=== PATIENT | female | born 1955 | race Caucasian/White ===

== ENCOUNTER 2017-06-24 09:29 | Emergency (ER) | payer BC ==
[~2017-06-24] VITALS: Ht 160 cm; Wt 54.5 kg
[~2017-06-24 09:29] MED LIST: ESTR1TAB13 PO
[2017-06-24 09:46] VITALS: BP 135/82
--- NOTE | 2017-06-24 09:54 | NUR ---
Pt taken to bed 1.
--- NOTE | 2017-06-24 10:05 | NUR ---
PATIENT PRESENTS TO ED WITH C/O INTERMITTENT DIZZINESS/NAUSEA X 1 MONTH WITH FEELING FATIGUE AND LETHARGIC;DENIES NUMBNESS/TINGLING SENSATION ON EXTREMITIES;DENIES BLURRY OF VISSION;DENIES V/D;HX OF UTI;RX OF MICROBID; SKIN IS PINK/WARM/DRY; AAOX4 WITH EVEN AND STEADY GAIT; LUNGS CLEAR BL; HR EVEN AND REGULAR; PT DENIES ANY FEVER, CP, SOB, OR COUGH AT THIS TIME; PATIENT STATES PAIN OF 6/10 AT THIS TIME; PATIENT POSITIONED FOR COMFORT; HOB ELEVATED; BEDRAILS UP X2; BED DOWN. ER MD MADE AWARE OF PT STATUS.
--- NOTE | 2017-06-24 11:53 | NUR ---
PT RESTING ON BED;STATES" I DON'T FEEL THAT DIZZY ANYMORE CAN I GO HOME NOW?"WHEN WILL THE DR COME HERE?EXPLAINED TO PT THAT DR IS BUSY RT NOW BUT HE'S DOING HIS BEST TO ATTNED TO HER;CONVINCED PT TO WAIT FOR A LITTLE MORE AND PT AGREED TO IT;WILL CONTINUE TO MONITOR PT.
--- NOTE | 2017-06-24 12:08 | NUR ---
DR SIU AT BEDSIDE.
[2017-06-24 12:50] LABS: APPEARANCE,URINE CLEAR (CLEAR); BILIRUBIN,URINE NEGATIVE (NEGATIVE); BLOOD, URINE NEGATIVE (NEGATIVE); COLOR,URINE YELLOW (YELLOW); LEUKOCYTE ESTERASE ,URINE NEGATIVE (NEGATIVE); NITRITE, URINE NEGATIVE (NEGATIVE); UGLUCOSE NEGATIVE (NEGATIVE)
[2017-06-24 13:04] LABS: ALBUMIN 4.3 g/dL (3.4-5.0); ANION GAP 15.6 (8-16); CARBON DIOXIDE 27.3 mmol/L (21-32); CREATININE 0.9 mg/dL (0.6-1.3); HEMATOCRIT 42.8 % (36-48); HEMOGLOBIN 14.2 g/dL (12.0-16.0); MEAN CORPUSCULAR HEMOGLOBIN 27 pg (27-31); MEAN CORPUSCULAR HGB CONC 33 g/dL (33-37); MEAN CORPUSCULAR VOLUME 83 fL (80-94); PLATELET COUNT (AUTO) 170 K/uL (140-450); POTASSIUM 4.9 mmol/L (3.5-5.1); RED BLOOD CELL COUNT(AUTO) 5.18 MIL/uL (4.20-5.40); RED CELL DISTRIBUTION WIDTH 12.1 % (11.6-13.7); TOTAL BILIRUBIN 0.5 mg/dL (0.0-1.0); WHITE BLOOD COUNT (AUTO) 6.2 K/uL (4.8-10.8)
[2017-06-24 13:09] LABS: RBC,URINE NONE SEEN /HPF (0-5); WBC,URINE 0-5 (RARE) /HPF (0-5)
[2017-06-24 13:19] LABS: LYMPHOCYTES % (MANUAL) 49 % (20-46)
[2017-06-24 13:20] LABS: EOSINOPHILS % (MANUAL) 2 % (0-4); MONOCYTES % (MANUAL) 9 % (5-12)
[2017-06-24 14:16] VITALS: BP 138/75
== END 2017-06-24 14:16 | disposition home or self-care (01) ==
LOC: MED 09:29
DX: R07.89 Other chest pain (principal); R42 Dizziness and giddiness; Z90.710 Acquired absence of both cervix and uterus; Z79.899 Other long term (current) drug therapy
CPT/HCPCS: 36415; 71045; 80053; 81001; 83690; 83880; 84484; 85025; 93005; 99285

== ENCOUNTER 2019-01-29 10:59 | Emergency (ER) | payer OTHER, BC ==
[~2019-01-29] VITALS: Ht 162.6 cm; Wt 56.7 kg
[2019-01-29 11:07] VITALS: BP 133/87
--- NOTE | 2019-01-29 11:23 | NUR ---
Pt taken to bed 7.
--- NOTE | 2019-01-29 11:48 | NUR ---
63F BIB FRIEND C/O DIZZINESS, FATIGUE, B/L LBP X 1 WEEK. PAIN IS SHARP, 7/10, CONSTANT. STATES FREQUENCY, DENIES DYSURIA AND URGENCY. PT AAOX4, COOPERATIVRE. TRIED TAKING CRANBERRY JUICE AT HOME. NO VISUAL CHANGES. DENIES N/V/D, FEVER. HX-NONE RX- NONE ALL-[facility]
--- NOTE | 2019-01-29 12:27 | NUR ---
Dr. Chavez evaluating patient at bedside.
--- NOTE | 2019-01-29 12:59 | NUR ---
PT SITTING IN BED, FAMILY AT BEDSIDE. PT REPORTS PAIN AT 7/10, PT STATES SHE DOES NOT WANT ANY SHOTS AND WOULD PREFER ORAL MEDICINE. PT REPORTS SHE IS STILL DIZZY, PT AAOX4, MEMORY INTACT, SPEECH CLEAR. VSS.
[2019-01-29] MEDS ORDERED: ACETAMINOPHEN 325 MG TAB PO ONE (13:15)
--- NOTE | 2019-01-29 13:33 | NUR ---
PT GOING TO X-RAY AT THIS TIME
--- NOTE | 2019-01-29 14:04 | NUR ---
wilder labs on pt using butterfly needle, pt tolerated well, student nurses are taking samples to lab.
[2019-01-29 14:21] LABS: BASOPHILS % (AUTO) 0.4 % (0.0-2.0); EOSINOPHILS # (AUTO) 0.1 K/uL (0-0.4); EOSINOPHILS % (AUTO) 1.3 % (0.0-4.0); HEMATOCRIT 43.8 % (36-48); HEMOGLOBIN 14.7 g/dL (12.0-16.0); LYMPHOCYTES # (AUTO) 2.6 K/uL (2.5-16.5); LYMPHOCYTES % (AUTO) 32.3 % (20.5-51.1); MEAN CORPUSCULAR HEMOGLOBIN 28 pg (27-31); MEAN CORPUSCULAR HGB CONC 34 g/dL (33-37); MEAN CORPUSCULAR VOLUME 82.6 fL (80-94); MONOCYTES # (AUTO) 0.5 K/uL (0.8-1.0); MONOCYTES % (AUTO) 6.8 % (1.7-9.3); NEUTROPHILS # (AUTO) 4.8 K/uL (1.8-7.7); NEUTROPHILS % (AUTO) 59.2 % (42.2-75.2); PLATELET COUNT (AUTO) 191 K/uL (140-450); WHITE BLOOD COUNT (AUTO) 8.1 K/uL (4.8-10.8)
[2019-01-29 14:22] LABS: APPEARANCE,URINE CLEAR (CLEAR); BILIRUBIN,URINE NEGATIVE (NEGATIVE); BLOOD, URINE NEGATIVE (NEGATIVE); COLOR,URINE YELLOW (YELLOW); LEUKOCYTE ESTERASE ,URINE NEGATIVE (NEGATIVE); NITRITE, URINE NEGATIVE (NEGATIVE); UGLUCOSE NEGATIVE (NEGATIVE)
[2019-01-29 15:27] LABS: ANION GAP 14.4 (8-16); CREATININE 0.9 mg/dL (0.6-1.3); POTASSIUM 4.4 mmol/L (3.5-5.1)
[2019-01-29 15:52] VITALS: BP 127/79
--- NOTE | 2019-01-29 15:52 | NUR ---
Patient discharged with v/s stable. Written and verbal after care instructions given and explained. Patient verbalized understanding. Ambulatory with steady gait. All questions addressed prior to discharge. Advised to follow up with PMD.
== END 2019-01-29 15:52 | disposition home or self-care (01) ==
LOC: MED 10:59
DX: M54.5 Low back pain (principal); R35.0 Frequency of micturition; R42 Dizziness and giddiness; Z79.899 Other long term (current) drug therapy
CPT/HCPCS: 36415; 72100; 80048; 81003; 82948; 85025; 99284

== ENCOUNTER 2021-12-23 09:05 | Emergency (ER) | payer OTHER, BC ==
[~2021-12-23] VITALS: Ht 152.4 cm; Wt 52.6 kg
[2021-12-23 09:13] VITALS: BP 129/86
--- NOTE | 2021-12-23 09:20 | NUR ---
PT AMBULATED TO ER BED 4
--- NOTE | 2021-12-23 09:46 | NUR ---
md gaming in pt room for assessment at this time
[2021-12-23] MEDS ORDERED: HYDROcodone/APAP 5/325 MG 1 TAB TAB PO ONE (09:50)
[2021-12-23] MEDS ORDERED: HYDROcodone/APAP 5/325 MG 1 TAB TAB ONE (09:50)
[2021-12-23] MEDS ORDERED: IBUP-2213 PO (09:51)
[2021-12-23] MEDS ORDERED: ACET-8386 PO (09:51)
--- NOTE | 2021-12-23 09:52 | NUR ---
66 y/o female, c/o low back pain for 2 motnhs, denie sinjury or trauma. pt states she has bene taking tramadol and acupuncture, but has been having worsening pain. denies nausea, vomiting, diarrhea. skin is pink/warm/dry. a&o x4 with even and steady gait. lungs clear bl, heart rate even and regular. pt denies dysuria, hematuria, urinary frequency or retention, or anyone sick in the household with the same symptoms. pt denies any fever, cp, sob, or cough at this time. pt states pain is 10/10 at this time. vss. patient positioned for comfort. hob elevated. bed down. ermd made aware of pt. pmh: denies nka
[2021-12-23 10:07] VITALS: BP 129/86
--- NOTE | 2021-12-23 10:08 | NUR ---
Patient discharged with v/s stable. Written and verbal after care instructions given and explained. Patient alert, oriented and verbalized understanding of instructions. Ambulatory with steady gait. All questions addressed prior to discharge. ID band removed. Patient advised to follow up with PMD. Rx of norco, ibuprofen (sent) given. Patient educated on indication of medication including possible reaction and side effects. Opportunity to ask questions provided and answered.
== END 2021-12-23 10:08 | disposition home or self-care (01) ==
LOC: MED 09:05
DX: M54.50 Low back pain, unspecified (principal); Z79.899 Other long term (current) drug therapy
CPT/HCPCS: 81002; 99283

== ENCOUNTER 2022-10-15 13:02 | Emergency (ER) | payer OTHER, BC ==
[~2022-10-15] VITALS: Ht 157.5 cm; Wt 54.4 kg
[~2022-10-15 13:02] MED LIST changes: +ACET-8905 PO; +IBUP-2213 PO
[2022-10-15 13:07] VITALS: BP 143/70
--- NOTE | 2022-10-15 13:24 | NUR ---
67 yo/f presents to ED w c/o low sodium test was done thursday and results came in today. pt denies any chest pain, sob, dizziness or any symptoms. pmh: denies allergies: denies
[2022-10-15 13:43] LABS: BASOPHILS % (AUTO) 0.5 % (0.0-2.0); EOSINOPHILS # (AUTO) 0.1 K/uL (0-0.4); EOSINOPHILS % (AUTO) 1.7 % (0.0-4.0); HEMATOCRIT 38.1 % (36-48); HEMOGLOBIN 12.9 g/dL (12.0-16.0); MEAN CORPUSCULAR HEMOGLOBIN 28 pg (27-31); MEAN CORPUSCULAR HGB CONC 34 g/dL (33-37); MEAN CORPUSCULAR VOLUME 82.8 fL (80-94); MONOCYTES # (AUTO) 0.8 K/uL (0.8-1.0); MONOCYTES % (AUTO) 9.8 % (1.7-9.3); NEUTROPHILS # (AUTO) 4.4 K/uL (1.8-7.7); PLATELET COUNT (AUTO) 215 K/uL (140-450); RED CELL DISTRIBUTION WIDTH 13.6 % (11.6-13.7); WHITE BLOOD COUNT (AUTO) 8.4 K/uL (4.8-10.8)
[2022-10-15 14:13] LABS: APPEARANCE,URINE CLEAR (CLEAR); BILIRUBIN,URINE NEGATIVE (NEGATIVE); BLOOD, URINE NEGATIVE (NEGATIVE); COLOR,URINE YELLOW (YELLOW); LEUKOCYTE ESTERASE ,URINE NEGATIVE (NEGATIVE); NITRITE, URINE NEGATIVE (NEGATIVE); UGLUCOSE NEGATIVE (NEGATIVE)
[2022-10-15 14:44] LABS: ALBUMIN 3.5 g/dL (3.4-5.0); ANION GAP 12.6 (8-16); CARBON DIOXIDE 25.5 mmol/L (21-32); CREATININE 0.7 mg/dL (0.6-1.3); POTASSIUM 4.1 mmol/L (3.5-5.1); TOTAL BILIRUBIN 0.3 mg/dL (0.0-1.0)
[2022-10-15 15:27] VITALS: BP 114/70
== END 2022-10-15 15:28 | disposition home or self-care (01) ==
LOC: MED 13:02
DX: E87.1 Hypo-osmolality and hyponatremia (principal); Z20.822 Contact with and (suspected) exposure to COVID-19; Z79.899 Other long term (current) drug therapy; Z90.710 Acquired absence of both cervix and uterus
CPT/HCPCS: 36415; 71045; 80053; 81003; 83880; 84443; 85025; 93005; 99285

== ENCOUNTER 2022-12-11 08:45 | Emergency (ER) | payer OTHER, BC ==
[~2022-12-11] VITALS: Ht 162.6 cm; Wt 68.0 kg
[2022-12-11 09:00] VITALS: BP 147/80; PULSE 74; RESP 17; TEMP 97.4; O2SAT 98
[2022-12-11] MEDS ORDERED: MECLIZINE 25 MG TAB PO ONE (09:40)
[2022-12-11 10:20] LABS: BASOPHILS % (AUTO) 0.8 % (0.0-2.0); EOSINOPHILS # (AUTO) 0.2 K/uL (0-0.4); EOSINOPHILS % (AUTO) 3.1 % (0.0-4.0); HEMATOCRIT 42.6 % (36-48); HEMOGLOBIN 14.4 g/dL (12.0-16.0); LYMPHOCYTES # (AUTO) 1.8 K/uL (2.5-16.5); MEAN CORPUSCULAR HEMOGLOBIN 28 pg (27-31); MEAN CORPUSCULAR HGB CONC 34 g/dL (33-37); MONOCYTES # (AUTO) 0.5 K/uL (0.8-1.0); MONOCYTES % (AUTO) 9.1 % (1.7-9.3); NEUTROPHILS # (AUTO) 3.4 K/uL (1.8-7.7); PLATELET COUNT (AUTO) 191 K/uL (140-450); RED BLOOD CELL COUNT(AUTO) 5.13 MIL/uL (4.20-5.40); WHITE BLOOD COUNT (AUTO) 5.9 K/uL (4.8-10.8)
[2022-12-11 10:53] LABS: ALBUMIN 3.8 g/dL (3.4-5.0); ANION GAP 11.8 (8-16); ASPARTATE AMINOTRANSFERASE 35 U/L (15-37); CARBON DIOXIDE 26.2 mmol/L (21-32); CHLORIDE 95 mmol/L (98-107); CREATININE 0.7 mg/dL (0.6-1.3); GFR ARICAN-AMERICAN 107 mL/min (>90); GLUCOSE 99 mg/dL (74-106); SODIUM SERUM 129 mmol/L (136-145); TOTAL BILIRUBIN 0.7 mg/dL (0.0-1.0); UREA NITROGEN, BLOOD 15 mg/dL (7-18)
--- NOTE | 2022-12-11 11:04 | NUR ---
Pt bibs for vertigo since Thursday. Pt states she feels like her surroundings are spinning, especially when walking. Pt is a/o x 4, vss, on ss of acute distress, breathing equal and unlabored, speech clear. IV placed, labs given to lab. Pt to ct in stable condition.
[2022-12-11] MEDS ORDERED: MECL-303 PO (12:29)
[2022-12-11 12:52] VITALS: BP 143/74; PULSE 77; RESP 14; O2SAT 98
--- NOTE | 2022-12-11 12:54 | NUR ---
Patient discharged with v/s stable. Written and verbal after care instructions given and explained. Patient alert, oriented and verbalized understanding of instructions. Ambulatory with steady gait. All questions addressed prior to discharge. ID band removed. Patient advised to follow up with PMD. Rx reviewed. Patient educated on indication of medication including possible reaction and side effects. Opportunity to ask questions provided and answered.
== END 2022-12-11 12:52 | disposition home or self-care (01) ==
LOC: MED 08:45
DX: H81.12 Benign paroxysmal vertigo, left ear (principal); Z79.899 Other long term (current) drug therapy; Z79.1 Long term (current) use of non-steroidal anti-inflammatories (NSAID)
CPT/HCPCS: 36415; 70450; 70496; 70498; 80053; 84484; 85025; 93005; 99285; J8597; Q9967